=== PATIENT | male | born 1980 | race American Indian/Alaskan Native ===

== ENCOUNTER 2018-04-21 03:47 | Emergency (ER) | payer SELFPAY ==
[2018-04-21 04:04] VITALS: BP 137/91
[2018-04-21] MEDS ORDERED: MOTRIN PO ONE (04:04)
--- NOTE | 2018-04-21 04:35 | XRay Report ---
FINAL REPORT EXAM: XR HAND 2V RT HISTORY: Swelling of right hand and middle finger. TECHNIQUE: AP and lateral views of the right hand were obtained. FINDINGS: There is non specific fusiform soft swelling around the middle and proximal phalanges of the middle finger. There is no evidence acute fracture or dislocation. There is a chronic fracture deformity involving the distal end of the 5th metacarpal. The wrist joint is not show any acute changes. IMPRESSION: Nonspecific fusiform soft swelling around the middle and proximal phalanges of the middle finger. Chronic fracture deformity of the distal end of the 5th metacarpal. No evidence of acute fracture or dislocation.
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
== END 2018-04-21 05:40 | disposition home or self-care (01) ==
LOC: ED 03:47
DX: S60.221A Contusion of right hand, initial encounter (principal); S61.259A Open bite of unspecified finger without damage to nail, initial encounter; W50.3XXA Accidental bite by another person, initial encounter; Y93.89 Activity, other specified; Y92.89 Other specified places as the place of occurrence of the external cause; Y99.8 Other external cause status
CPT/HCPCS: 99283

== ENCOUNTER 2018-08-05 12:53 | Emergency (ER) | payer SELFPAY ==
[2018-08-05 13:15] VITALS: BP 153/103
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
== END 2018-08-05 14:29 | disposition home or self-care (01) ==
LOC: ED 12:53
DX: R03.0 Elevated blood-pressure reading, without diagnosis of hypertension (principal); K13.0 Diseases of lips
CPT/HCPCS: 99282

== ENCOUNTER 2019-10-31 13:11 | Emergency (ER) | payer SELFPAY ==
[2019-10-31 13:27] VITALS: BP 161/87
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
== END 2019-10-31 17:36 | disposition home or self-care (01) ==
LOC: ED 13:11
DX: S16.1XXA Strain of muscle, fascia and tendon at neck level, initial encounter (principal); Z79.1 Long term (current) use of non-steroidal anti-inflammatories (NSAID); V49.49XA Driver injured in collision with other motor vehicles in traffic accident, initial encounter; Y93.89 Activity, other specified; Y92.488 Other paved roadways as the place of occurrence of the external cause; Y99.8 Other external cause status
CPT/HCPCS: 72040; 72100; 99283

== ENCOUNTER 2019-12-23 11:14 | Emergency (ER) | payer SELFPAY ==
[2019-12-23 11:30] VITALS: BP 155/86
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
== END 2019-12-23 13:42 | disposition home or self-care (01) ==
LOC: ED 11:14
DX: S67.193A Crushing injury of left middle finger, initial encounter (principal); L03.012 Cellulitis of left finger; Z98.890 Other specified postprocedural states; Z79.1 Long term (current) use of non-steroidal anti-inflammatories (NSAID); Z79.2 Long term (current) use of antibiotics; Z79.899 Other long term (current) drug therapy; Z88.2 Allergy status to sulfonamides; X58.XXXA Exposure to other specified factors, initial encounter; Y93.89 Activity, other specified; Y92.810 Car as the place of occurrence of the external cause; Y99.8 Other external cause status
CPT/HCPCS: 99283

== ENCOUNTER 2021-11-01 12:34 | Emergency (ER) | payer SELFPAY ==
[2021-11-01 13:17] VITALS: BP 139/91
== END 2021-11-01 16:04 | disposition left against medical advice (07) ==
LOC: ED 12:34
DX: Z04.1 Encounter for examination and observation following transport accident (principal); Z53.21 Procedure and treatment not carried out due to patient leaving prior to being seen by health care provider; V87.7XXA Person injured in collision between other specified motor vehicles (traffic), initial encounter; Y93.89 Activity, other specified; Y92.488 Other paved roadways as the place of occurrence of the external cause; Y99.8 Other external cause status

== ENCOUNTER 2021-11-02 10:20 | Emergency (ER) | payer SELFPAY ==
[2021-11-02] MEDS ORDERED: ACETAMINOPHEN 500 MG TAB PO ONE (12:09)
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
[2021-11-02 12:14] VITALS: BP 149/96
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
== END 2021-11-02 13:56 | disposition home or self-care (01) ==
LOC: ED 10:20
DX: S39.012A Strain of muscle, fascia and tendon of lower back, initial encounter (principal); Z88.2 Allergy status to sulfonamides; Z79.899 Other long term (current) drug therapy; V87.7XXA Person injured in collision between other specified motor vehicles (traffic), initial encounter; Y93.89 Activity, other specified; Y92.488 Other paved roadways as the place of occurrence of the external cause; Y99.8 Other external cause status
CPT/HCPCS: 72070; 72100; 99283